=== PATIENT | female | born 1955 | race Caucasian/White ===

== ENCOUNTER → 2016-04-09 | Outpatient (REF) | payer OTHER | LOC: M LAB REF 16:36 | PROVIDERS: ATTEND Physician Assistant | DX: J06.9 Acute upper respiratory infection, unspecified (principal); R05 Cough ==

== ENCOUNTER → 2016-06-23 | Outpatient (REF) | payer OTHER | LOC: M LAB REF 19:59 | PROVIDERS: ATTEND Physician Assistant | DX: N39.0 Urinary tract infection, site not specified (principal) ==

== ENCOUNTER 2016-08-09 18:12 | Emergency (ER) | payer BC, OTHER ==
[~2016-08-09] VITALS: Ht 162.6 cm; Wt 75.7 kg
[2016-08-09] MEDS ORDERED: CALC1TAB40 PO (18:28)
[2016-08-09] MEDS ORDERED: VITA400C97 PO (18:28)
[2016-08-09] MEDS ORDERED: VITAMIN B COMPLEX PO (18:28)
[2016-08-09] MEDS ORDERED: MULT1TAB18 PO (18:28)
[2016-08-09] MEDS ORDERED: MAGN500C PO (18:28)
[2016-08-09] MEDS ORDERED: VITA80005 PO (18:28)
[2016-08-09] MEDS ORDERED: D 50CAP PO (18:28)
[2016-08-09] MEDS ORDERED: ASPI81TA85 PO (18:28)
[2016-08-09 19:27] LABS: ALBUMIN 3.7 GM/DL (3.2-5.2); ALBUMIN/GLOBULIN RATIO 1.16 (1.00-1.93); ALKALINE PHOSPHATASE 109 U/L (45-117); ALT/SGPT 29 U/L (12-78); ANION GAP 8 MEQ/L (8-16); AST/SGOT 26 U/L (15-37); BILIRUBIN,DIRECT < 0.1 MG/DL (0.0-0.2); BILIRUBIN,TOTAL 0.4 MG/DL (0.2-1.0); BLOOD UREA NITROGEN 14 MG/DL (7-18); CALCIUM LEVEL 9.2 MG/DL (8.8-10.2); CARBON DIOXIDE LEVEL 27 MEQ/L (21-32); CHLORIDE LEVEL 106 MEQ/L (98-107); CREATININE FOR GFR 0.72 MG/DL (0.55-1.02); GLOMERULAR FILTRATION RATE > 60.0 (>45); GLUCOSE, FASTING 101 MG/DL (80-110); POTASSIUM SERUM 4.1 MEQ/L (3.5-5.1); SODIUM LEVEL 141 MEQ/L (136-145); TOTAL PROTEIN 6.9 GM/DL (6.4-8.2)
[2016-08-09 19:28] LABS: BASO % 0.6 % (0.0-1.0); EOS # 0.1 K/mm3 (0.0-0.50); EOS % 1.4 % (0.0-3.0); LARGE UNSTAINED CELL # 0.1 K/mm3 (0.0-0.4); LARGE UNSTAINED CELL % 2.4 % (0.0-4.0); LYMPH # 2.3 K/mm3 (1.5-4.5); MEAN CORPUSCULAR HEMOGLOBIN 29.7 pg (27.0-33.0); MEAN CORPUSCULAR HGB CONC 32.3 g/dl (32.0-36.5); MONO # 0.3 K/mm3 (0.0-0.8); MONO % 6.1 % (0.0-5.0); NEUTROPHILS # 2.7 K/mm3 (1.8-7.7); NEUTROPHILS % 49.5 % (36.0-66.0); PLATELET COUNT, AUTOMATED 279 k/mm3 (150-450); RED CELL DISTRIBUTION WIDTH 14.7 % (11.5-14.5); WHITE BLOOD COUNT 5.4 K/mm3 (4.0-10.0)
[2016-08-09] MEDS ORDERED: NS 1,000 ML IV ONE (21:00)
[2016-08-09] MEDS ORDERED: GASTROGRAFIN SOLUTION 30ML (Q9963) PO ONE ×2 (21:15)
[2016-08-09] MEDS ORDERED: PANTOPRAZOLE 40MG INJ (PROTONIX) (C9113) IV ONE (21:15)
[2016-08-09] MEDS ORDERED: ISOVUE-370 76% 100ML VIAL (Q9967) As Ordered ONE (22:42)
--- NOTE | 2016-08-09 23:00 | REPUSA ---
CT of the abdomen and pelvis with contrast Clinical statement: Pain. Technique: Multiple axial CT images were obtained from the base of the lungs through the floor of the pelvis utilizing 5 mm axial slices after administration of oral and nonionic intravenous contrast. C oronal and sagittal reconstructions were also obtained. Comparison: None. Findings: Chest: The visualized lung bases are clear. Abdomen: The liver, spleen, pancreas, kidneys, and adrenal glands are unremarkable. The patient is st atus post gastric bypass. The aorta is within normal limits. There is no evidence of abdominal lympha denopathy or ascites. Pelvis: The bowel is unremarkable, with no obstructive or inflammatory changes. The urinary bladder i s within normal limits. The other pelvic structures appear grossly intact. There is no evidence of pe lvic lymphadenopathy or ascites. Bones: There are no suspicious osseous abnormalities seen. Impression: 1. No obstructive or inflammatory bowel changes. 2. Gastric bypass appears unremarkable. 3. Patient status post cholecystectomy.
[2016-08-09] MEDS ORDERED: SUCR1SS PO (23:21)
[2016-08-09] MEDS ORDERED: PROT1TAB2 PO (23:21)
[2016-08-09 23:35] VITALS: BP 139/83
== END 2016-08-09 23:37 | disposition home or self-care (01) ==
LOC: M ED 20:09
DX: K25.0 Acute gastric ulcer with hemorrhage (principal); K92.1 Melena; R10.12 Left upper quadrant pain; Z98.84 Bariatric surgery status; Z90.49 Acquired absence of other specified parts of digestive tract; Z90.79 Acquired absence of other genital organ(s); Z79.899 Other long term (current) drug therapy; Z88.7 Allergy status to serum and vaccine
CPT/HCPCS: 36415; 74177; 80048; 80076; 81001; 83690; 85025; 86850; 86900; 86901; 96374; 99284; C9113; Q9963; Q9967

== ENCOUNTER 2017-06-19 19:48 | Inpatient (IN) | payer BC, OTHER ==
[2017-06-19] MEDS: PANTOPRAZOLE 40MG INJ (PROTONIX) (C9113) IV ×2 (21:00→21:27)
[2017-06-19 21:03] LABS: BASO % 0.5 % (0.0-1.0); EOS # 0.1 10^3/uL (0.0-0.50); EOS % 0.8 % (0.0-3.0); HEMATOCRIT 24.3 % (36.0-47.0); HEMOGLOBIN 7.6 g/dl (12.0-15.5); IMMATURE GRANULOCYTE % 0.2 % (0-3.0); LYMPH # 1.9 10^3/uL (1.5-4.5); LYMPH % 29.2 % (24.0-44.0); MEAN CORPUSCULAR HEMOGLOBIN 26.4 pg (27.0-33.0); MEAN CORPUSCULAR HGB CONC 31.3 g/dl (32.0-36.5); MEAN CORPUSCULAR VOLUME 84.4 fl (80.0-96.0); MONO # 0.7 10^3/uL (0.0-0.8); MONO % 10.1 % (0.0-5.0); NEUTROPHILS % 59.2 % (36.0-66.0); PLATELET COUNT, AUTOMATED 363 10^3/uL (150-450); RED BLOOD COUNT 2.88 10^6/uL (4.00-5.40); RED CELL DISTRIBUTION WIDTH 15.9 % (11.5-14.5); WHITE BLOOD COUNT 6.7 10^3/uL (4.0-10.0)
[2017-06-19] MEDS: NS 1,000 ML IV (21:26)
[2017-06-19 21:30] LABS: INR 0.96; PROTHROMBIN TIME 12.9 SECONDS (12.4-14.5)
[2017-06-19 21:36] LABS: ALBUMIN 3.6 GM/DL (3.2-5.2); ALBUMIN/GLOBULIN RATIO 0.92 (1.00-1.93); ALKALINE PHOSPHATASE 96 U/L (45-117); ALT/SGPT 24 U/L (12-78); ANION GAP 9 MEQ/L (8-16); AST/SGOT 20 U/L (7-37); BILIRUBIN,DIRECT < 0.1 MG/DL (0.0-0.2); BILIRUBIN,TOTAL 0.2 MG/DL (0.2-1.0); BLOOD UREA NITROGEN 14 MG/DL (7-18); CALCIUM LEVEL 8.6 MG/DL (8.8-10.2); CARBON DIOXIDE LEVEL 22 MEQ/L (21-32); CHLORIDE LEVEL 112 MEQ/L (98-107); CREATININE FOR GFR 0.72 MG/DL (0.55-1.30); GLOMERULAR FILTRATION RATE > 60.0 (>45); GLUCOSE, FASTING 112 MG/DL (70-100); LIPASE 216 U/L (73-393); POTASSIUM SERUM 3.7 MEQ/L (3.5-5.1); SODIUM LEVEL 143 MEQ/L (136-145); TOTAL PROTEIN 7.5 GM/DL (6.4-8.2)
[2017-06-19 22:15] LABS: IMMEDIATE SPIN CROSSMATCH 1 2
[2017-06-20] MEDS: LR 1,000 ML IV ×4 (03:01→17:06)
[2017-06-20 05:16] LABS: HEMATOCRIT 28.4 % (36.0-47.0)
[2017-06-20 05:34] LABS: ANION GAP 5 MEQ/L (8-16); BLOOD UREA NITROGEN 10 MG/DL (7-18); CALCIUM LEVEL 8.6 MG/DL (8.8-10.2); CARBON DIOXIDE LEVEL 24 MEQ/L (21-32); CHLORIDE LEVEL 116 MEQ/L (98-107); CREATININE FOR GFR 0.61 MG/DL (0.55-1.30); GLOMERULAR FILTRATION RATE > 60.0 (>45); GLUCOSE, FASTING 90 MG/DL (70-100); POTASSIUM SERUM 4.8 MEQ/L (3.5-5.1); SODIUM LEVEL 145 MEQ/L (136-145)
[2017-06-20] MEDS: PANTOPRAZOLE 40MG INJ (PROTONIX) (C9113) IV (08:46)
[2017-06-20] MEDS ORDERED: PROPOFOL 200 MG/20 ML VIAL As Ordered ×2 (15:44→16:07)
[2017-06-20] MEDS ORDERED: LIDOCAINE 2% INJ 100 MG/5 ML SYRINGE As Ordered (15:44)
[2017-06-20] MEDS: SUCRALFATE 1 GM TAB PO (17:50)
[2017-06-20 19:29] LABS: HEMATOCRIT 28.1 % (36.0-47.0)
[2017-06-21] MEDS: LR 1,000 ML IV ×2 (01:10→08:34)
[2017-06-21] MEDS: ACETAMINOPHEN TAB 650MG DOSE (2X325MG) PO (03:53)
[2017-06-21 05:47] LABS: HEMATOCRIT 29.3 % (36.0-47.0); HEMOGLOBIN 9.3 g/dl (12.0-15.5); MEAN CORPUSCULAR HEMOGLOBIN 26.3 pg (27.0-33.0); MEAN CORPUSCULAR HGB CONC 31.7 g/dl (32.0-36.5); PLATELET COUNT, AUTOMATED 294 10^3/uL (150-450); RED BLOOD COUNT 3.53 10^6/uL (4.00-5.40); RED CELL DISTRIBUTION WIDTH 16.1 % (11.5-14.5); WHITE BLOOD COUNT 5.1 10^3/uL (4.0-10.0)
[2017-06-21 06:11] LABS: ANION GAP 7 MEQ/L (8-16); BLOOD UREA NITROGEN 5 MG/DL (7-18); CALCIUM LEVEL 8.6 MG/DL (8.8-10.2); CARBON DIOXIDE LEVEL 24 MEQ/L (21-32); CHLORIDE LEVEL 115 MEQ/L (98-107); GLOMERULAR FILTRATION RATE > 60.0 (>45); GLUCOSE, FASTING 87 MG/DL (70-100); SODIUM LEVEL 146 MEQ/L (136-145)
[2017-06-21] MEDS: SUCRALFATE 1 GM TAB PO (06:27)
[2017-06-21] MEDS: PANTOPRAZOLE 40MG TAB (PROTONIX) PO (08:05)
[2017-06-21 09:09] LABS: VITAMIN B12 LEVEL 351 PG/ML (247-911)
[2017-06-21 09:56] LABS: RETIC HEMOGLOBIN EQUIVALENT 24.1 pg (24-36); RETICULOCYTE # 68.9 10^9/L (17-77)
[2017-06-21 10:27] LABS: FERRITIN 5 NG/ML (8-252); IRON (FE) 22 UG/DL (50-170); PERCENT SATURATION 5.1 % (13.2-45.0); TOTAL IRON BINDING CAPACITY 432 UG/DL (250-450)
[2017-06-21] MEDS ORDERED: SLF 3 ML SYR IV (10:45)
[2017-06-21] MEDS: SLF 3 ML SYR IV (13:52)
== END 2017-06-21 14:06 | disposition home or self-care (01) | DRG 253 ==
LOC: M PCU 06-20 00:27 → M ED 19:48 → M ED INP 22:51
PROC: 0DJ08ZZ Inspection of Upper Intestinal Tract, Via Natural or Artificial Opening Endoscopic (ICD-10-PCS; principal; 2017-06-20 09:25)
PROC: 0W3P8ZZ Control Bleeding in Gastrointestinal Tract, Via Natural or Artificial Opening Endoscopic (ICD-10-PCS; 2017-06-20 09:25)
DX: K92.2 Gastrointestinal hemorrhage, unspecified (principal); K21.9 Gastro-esophageal reflux disease without esophagitis; Z79.899 Other long term (current) drug therapy; Z79.82 Long term (current) use of aspirin; Z88.7 Allergy status to serum and vaccine; K44.9 Diaphragmatic hernia without obstruction or gangrene; D62 Acute posthemorrhagic anemia

== ENCOUNTER → 2017-07-15 | Outpatient (CLI) | payer BC, OTHER ==
[2017-07-15 12:32] LABS: BASO % 0.7 % (0.0-1.0); EOS # 0.1 10^3/uL (0.0-0.50); HEMATOCRIT 31.9 % (36.0-47.0); IMMATURE GRANULOCYTE % 0.2 % (0-3.0); LYMPH # 2.4 10^3/uL (1.5-4.5); LYMPH % 43.9 % (24.0-44.0); MEAN CORPUSCULAR HEMOGLOBIN 26.2 pg (27.0-33.0); MEAN CORPUSCULAR HGB CONC 31.3 g/dl (32.0-36.5); MEAN CORPUSCULAR VOLUME 83.5 fl (80.0-96.0); MONO # 0.8 10^3/uL (0.0-0.8); MONO % 14.2 % (0.0-5.0); NEUTROPHILS # 2.1 10^3/uL (1.8-7.7); PLATELET COUNT, AUTOMATED 362 10^3/uL (150-450); RED BLOOD COUNT 3.82 10^6/uL (4.00-5.40); RED CELL DISTRIBUTION WIDTH 16.5 % (11.5-14.5); WHITE BLOOD COUNT 5.5 10^3/uL (4.0-10.0)
== END ==
LOC: M LAB 12:06
DX: K92.1 Melena (principal); D50.9 Iron deficiency anemia, unspecified
CPT/HCPCS: 85025

== ENCOUNTER 2017-08-22 06:41 | Day surgery (SDC) | payer BC, OTHER ==
[2017-08-22] MEDS: NS 1,000 ML IV (07:11)
[2017-08-22] MEDS ORDERED: PROPOFOL 200 MG/20 ML VIAL As Ordered (07:45)
[2017-08-22] MEDS ORDERED: LIDOCAINE 2% INJ 100 MG/5 ML SDV (FOR ANES.) As Ordered (07:45)
[2017-08-22] MEDS ORDERED: fentaNYL 100 MCG/2 ML INJECTION (J3010) As Ordered (07:45)
== END 2017-08-22 08:15 | disposition home or self-care (01) ==
LOC: M OPP 06:41
DX: K95.89 Other complications of other bariatric procedure (principal); Z98.84 Bariatric surgery status; K25.0 Acute gastric ulcer with hemorrhage; R19.7 Diarrhea, unspecified; R06.83 Snoring; Z79.899 Other long term (current) drug therapy; Z90.710 Acquired absence of both cervix and uterus; Z90.49 Acquired absence of other specified parts of digestive tract
CPT/HCPCS: 43235

== ENCOUNTER 2018-03-04 16:08 | Inpatient (IN) | payer BC, OTHER ==
[~2018-03-04] VITALS: Ht 162.6 cm; Wt 83.5 kg
[~2018-03-04 16:08] MED LIST: ASPI81TA85 PO; CALC1TAB40 PO; CALCTAB29 PO; D 50CAP PO; IRON65TA PO; MAGN500C PO; MULT1TAB18 PO; PANT40TA3 PO; PROT1TAB2 PO; SUCR1SS PO; SUCR1TA PO; VITA400C7 PO; VITA400C97 PO; VITA600C4 PO; VITA80005 PO; VITAMIN B COMPLEX PO; VITATAB11 PO; VITMTA PO
[2018-03-04] MEDS ORDERED: OMEP20CA3 PO (17:04)
[2018-03-04] MEDS ORDERED: TYLE500T78 PO (17:04)
[2018-03-04] MEDS ORDERED: PANTOPRAZOLE 40MG INJ (PROTONIX) (C9113) IV ONE (17:15)
[2018-03-04 17:32] LABS: BASO % 0.2 % (0.0-1.0); EOS % 0.1 % (0.0-3.0); HEMOGLOBIN 9.4 g/dl (12.0-15.5); LYMPH # 1.5 10^3/uL (1.5-4.5); LYMPH % 18.3 % (24.0-44.0); MEAN CORPUSCULAR HEMOGLOBIN 29.2 pg (27.0-33.0); MEAN CORPUSCULAR HGB CONC 32.4 g/dl (32.0-36.5); MEAN CORPUSCULAR VOLUME 90.1 fl (80.0-96.0); MONO # 0.5 10^3/uL (0.0-0.8); MONO % 6.1 % (0.0-5.0); NEUTROPHILS # 6.3 10^3/uL (1.8-7.7); NEUTROPHILS % 74.9 % (36.0-66.0); PLATELET COUNT, AUTOMATED 282 10^3/uL (150-450); RED BLOOD COUNT 3.22 10^6/uL (4.00-5.40); WHITE BLOOD COUNT 8.4 10^3/uL (4.0-10.0)
--- NOTE | 2018-03-04 17:40 | REP ---
Clinical: abdominal pain. Technique: Upright view of the chest with supine and upright views of the abdomen and pelvis. Findings: Frontal upright view of the chest demonstrates no acute cardiopulmonary process or free air below the diaphragm to suspect pneumoperitoneum. Supine and upright views of the abdomen and pelvis demonstrate nonspecific bowel gas pattern without obstruction or perforation. No organomegaly. Prior cholecystectomy. Surgical suture material in the left upper quadrant suggest prior gastric bypass surgery. Phleboliths noted in the pelvis. Impression: Nonspecific bowel gas pattern. Evidence of prior cholecystectomy and gastric bypass surgery. Electronically Signed by Miguel Andrea MD 03/04/2018 05:31 P
[2018-03-04 17:59] LABS: ALBUMIN 3.1 GM/DL (3.2-5.2); ALT/SGPT 20 U/L (12-78); BILIRUBIN,DIRECT 0.1 MG/DL (0.0-0.2); BILIRUBIN,TOTAL 0.3 MG/DL (0.2-1.0); BLOOD UREA NITROGEN 38 MG/DL (7-18); CALCIUM LEVEL 8.4 MG/DL (8.8-10.2); CARBON DIOXIDE LEVEL 25 MEQ/L (21-32); CHLORIDE LEVEL 108 MEQ/L (98-107); CPK CREATINE PHOSPHOKINASE 99 U/L (26-192); CREATININE FOR GFR 0.66 MG/DL (0.55-1.30); GLOMERULAR FILTRATION RATE > 60.0 (>45); GLUCOSE, FASTING 132 MG/DL (70-100); MB/CK RELATIVE INDEX 1.11 (< OR =4); POTASSIUM SERUM 4.2 MEQ/L (3.5-5.1); SODIUM LEVEL 142 MEQ/L (136-145); TOTAL PROTEIN 6.4 GM/DL (6.4-8.2); TROPONIN I < 0.02 NG/ML (< 0.10)
[2018-03-04] MEDS ORDERED: NS 1,000 ML IV SCH (18:15)
[2018-03-04 18:22] LABS: INR 1.08; PROTHROMBIN TIME 14.1 SECONDS (12.1-14.4)
--- NOTE | 2018-03-04 18:32 | ECGEPIP ---
Stationary ECG Study [facility] - ED Test Date: 2018-03-04 Pat Name: MATEO PATE Department: Room: - Gender: F Corrections Counselor: kathy : 1955 Requested By: CIPRIANO SURESH Order Number: [id number] Reading MD: Janet Flowers Measurements Intervals [place] Rate: 88 P: 55 IN: 132 QRS: -19 QRSD: 86 T: -89 QT: 363 QTc: 440 Interpretive Statements SINUS RHYTHM ST DEVIATION AND MODERATE T-WAVE ABNORMALITY, CONSIDER ANTERIOR ISCHEMIA, C CLINICAL CORRELATION NO PRIOR FOR COMPARISON Electronically Signed On 03-04-2018 18:32:23 EST by Janet Flowers
[2018-03-04] MEDS ORDERED: ACETAMINOPHEN 500 MG TAB PO PRN (19:45)
[2018-03-04 21:20] VITALS: BP 140/65
[2018-03-04] MEDS ORDERED: ONDANSETRON 4MG/2ML VIAL (J2405) IV PRN (21:45)
[2018-03-04] MEDS: PANTOPRAZOLE 40MG INJ (PROTONIX) (C9113) IV SCH (21:45)
[2018-03-04] MEDS: NS 1,000 ML IV SCH (21:46)
[2018-03-04] MEDS: ACETAMINOPHEN 500 MG TAB PO PRN (23:44)
[2018-03-05] MEDS: NS 1,000 ML IV SCH (02:43)
[2018-03-05 06:00] VITALS: BP 103/50
[2018-03-05 06:20] LABS: BASO % 0.4 % (0.0-1.0); EOS # 0.1 10^3/uL (0.0-0.50); EOS % 1.6 % (0.0-3.0); HEMOGLOBIN 7.5 g/dl (12.0-15.5); LYMPH % 40.7 % (24.0-44.0); MEAN CORPUSCULAR HEMOGLOBIN 29.6 pg (27.0-33.0); MEAN CORPUSCULAR HGB CONC 32.6 g/dl (32.0-36.5); MEAN CORPUSCULAR VOLUME 90.9 fl (80.0-96.0); MONO # 0.6 10^3/uL (0.0-0.8); MONO % 8.5 % (0.0-5.0); NEUTROPHILS # 3.6 10^3/uL (1.8-7.7); NEUTROPHILS % 48.7 % (36.0-66.0); PLATELET COUNT, AUTOMATED 229 10^3/uL (150-450); RED BLOOD COUNT 2.53 10^6/uL (4.00-5.40); WHITE BLOOD COUNT 7.3 10^3/uL (4.0-10.0)
--- NOTE | 2018-03-05 08:24 | IPNPDOC ---
Date Seen The patient was seen on 03/05/18. Progress Note SUBJECTIVE: Patient seen and examined at bedside, in no apparent distress, Hb 7.5, no BM this am. for 1 unit PRBC. will continue to trend Hb OBJECTIVE PHYSICAL EXAMINATION: VITAL SIGNS: Please see below. GENERAL: well nourished, in no apparent distress HEENT: atraumatic, normocephalic , EOMI CARDIOVASCULAR: regular, rate and rhythm, normal s1 and s2 , no MGR RESPIRATORY: clear to auscultation b/l, no wheezes or crackles ABDOMINAL: soft, mild tenderness to deep palpation in epigastric area, no rebound or guarding EXTREMITIES: no edema, no calf tenderness NEUROLOGICAL: A&OX3., no focal deficits appreciated on the exam PSYCHOLOGICAL: normal mood, normal affect LABORATORY DATA, IMAGING STUDIES, MICROBIOLOGY: Please see below. DVT prophylaxis ordered?: sequential compression devices ASSESSMENT AND PLAN: 63 year old female with hx of gastric bypass and bleeding anastomotic ulcer requiring clips in past presents with melanotic stools PROBLEMS: 1. Acute Blood loss anemia 2/2 Upper GI bleed: ulcer ( most likely) vs gastritis vs angiodysplasia : had recent scope 07/[address] Schumacher. PPI BID, clear liquid diet, serial HB, transfuse keep HB > 8, surgery on board. stool for occult blood. 2. hx of gastric bypass: stable DISPOSITION: will continue to trend Hb, advance diet as tolerated. if Hb remains stable and stool improves, likely discharge in 48 hrs, if decompensates, likely would need endoscopy again VS, I&O, 24H, Fishbone Vital Signs/I&O Vital Signs Date Time Temp Pulse Resp B/P (MAP) Pulse Ox O2 Delivery O2 Flow Rate FiO2 03/05/18 06:00 98.5 71 18 103/50 (67) 99 Room Air I&O- Last 24 Hours up to 6 AM 03/05/18 05:59 Intake Total 1000 ml Output Total 500 ml Balance 500 ml Laboratory Data 24H LABS Laboratory Tests 2 03/04/18 17:20: Immature Granulocyte % (Auto) 0.4, White Blood Count 8.4, Red Blood Count 3.22L, Hemoglobin 9.4L, Hematocrit 29.0L, Mean Corpuscular Volume 90.1, Mean Corpuscular Hemoglobin 29.2, Mean Corpuscular Hemoglobin Concent 32.4, Red Cell Distribution Width 15.3H, Platelet Count 282, Neutrophils (%) (Auto) 74.9H, Lymphocytes (%) (Auto) 18.3L, Monocytes (%) (Auto) 6.1H, Eosinophils (%) (Auto) 0.1, Basophils (%) (Auto) 0.2, Neutrophils # (Auto) 6.3, Lymphocytes # (Auto) 1.5, Monocytes # (Auto) 0.5, Eosinophils # (Auto) 0.0, Basophils # (Auto) 0.0, Nucleated Red Blood Cells % (auto) 0.0, Prothrombin Time 14.1, Prothromb Time International Ratio 1.08, Activated Partial Thromboplast Time 22.0L, Anion Gap 9, Glomerular Filtration Rate > 60.0, Calcium Level 8.4L, Aspartate Amino Transf (AST/SGOT) 14, Alanine Aminotransferase (ALT/SGPT) 20, Alkaline Phosphatase 83, Total Bilirubin 0.3, Direct Bilirubin 0.1, Total Creatine Kinase 99, Creatine Kinase MB 1.0, Creatine Kinase MB Relative Index 1.11, Troponin I < 0.02, Total Protein 6.4, Albumin 3.1L, Albumin/Globulin Ratio 0.94L 03/05/18 06:10: Immature Granulocyte % (Auto) 0.1, White Blood Count 7.3, Red Blood Count 2.53L, Hemoglobin 7.5L, Hematocrit 23.0L, Mean Corpuscular Volume 90.9, Mean Corpuscular Hemoglobin 29.6, Mean Corpuscular Hemoglobin Concent 32.6, Red Cell Distribution Width 15.6H, Platelet Count 229, Neutrophils (%) (Auto) 48.7, Lymphocytes (%) (Auto) 40.7, Monocytes (%) (Auto) 8.5H, Eosinophils (%) (Auto) 1.6, Basophils (%) (Auto) 0.4, Neutrophils # (Auto) 3.6, Lymphocytes # (Auto) 3.0, Monocytes # (Auto) 0.6, Eosinophils # (Auto) 0.1, Basophils # (Auto) 0.0, Nucleated Red Blood Cells % (auto) 0.0 CBC/BMP Laboratory Tests 03/04/18 17:20 Red Blood Count 3.22 L, Mean Corpuscular Volume 90.1, Mean Corpuscular Hemoglobin 29.2, Mean Corpuscular Hemoglobin Concent 32.4, Red Cell Distribution Width 15.3 H, Neutrophils (%) (Auto) 74.9 H, Lymphocytes (%) (Auto) 18.3 L, Monocytes (%) (Auto) 6.1 H, Eosinophils (%) (Auto) 0.1, Basophils (%) (Auto) 0.2, Neutrophils # (Auto) 6.3, Lymphocytes # (Auto) 1.5, Monocytes # (Auto) 0.5, Eosinophils # (Auto) 0.0, Basophils # (Auto) 0.0 03/05/18 06:10 Red Blood Count 2.53 L, Mean Corpuscular Volume 90.9, Mean Corpuscular Hemoglobin 29.6, Mean Corpuscular Hemoglobin Concent 32.6, Red Cell Distribution Width 15.6 H, Neutrophils (%) (Auto) 48.7, Lymphocytes (%) (Auto) 40.7, Monocytes (%) (Auto) 8.5 H, Eosinophils (%) (Auto) 1.6, Basophils (%) (Auto) 0.4, Neutrophils # (Auto) 3.6, Lymphocytes # (Auto) 3.0, Monocytes # (Auto) 0.6, Eosinophils # (Auto) 0.1, Basophils # (Auto) 0.0 TUESDAY,ALE CORDOVA Mar 05, 2018 08:24
[2018-03-05] MEDS: VITAMIN D 1,000 INTERNATIONAL UNITS TABLET PO SCH (08:53)
[2018-03-05] MEDS: VITAMIN B COMPLEX/VIT C CAP PO SCH (08:53)
[2018-03-05] MEDS: PANTOPRAZOLE 40MG INJ (PROTONIX) (C9113) IV SCH ×2 (08:53→20:08)
--- NOTE | 2018-03-05 09:48 | HPE ---
DATE OF ADMISSION: 03/04/2018 63-year-old female with past medical history of gastric bypass surgery with recurrent peptic ulcers, last ulcer was in June 2017, scoped by Dr. Schumacher. She presents to the emergency room with large amount of melanotic stool that happened earlier this afternoon. She did not have any associated abdominal pain during that event; however, she has been complaining of epigastric pain over the last couple of days, unrelated to eating food. She does also admit to having Motrin occasionally for headaches; however, she does not take it avidly. She denies any chest pain, shortness of breath, abdominal pain, nausea, vomiting, vertigo or headache at this time. Her initial emergency room hemoglobin and hematocrit were stable compared to prior hemoglobin and hematocrit. She will be admitted for further management. PAST MEDICAL HISTORY: 1. Gastric bypass surgery with history of recurrent peptic ulcers, last ulcer in June 2017. 2. Laparoscopic cholecystectomy. 3. Right arthroscopic subacromial decompression. ALLERGIES: INFLUENZA VACCINE. FAMILY HISTORY: Noncontributory. SOCIAL HISTORY: The patient denies tobacco, alcohol or illicit drug use. MEDICATIONS: She takes at home: - Tylenol 1 gram orally every 4 hours as needed - vitamin B complex one tablet orally daily - calcium with vitamin D one tablet orally daily - cholecalciferol 5000 units orally daily - multivitamin one tablet orally daily - pantoprazole 40 mg orally twice a day - vitamin A 3000 units orally daily - vitamin E 400 units orally daily REVIEW OF SYSTEMS: Negative for all ten major systems except what is mentioned in the history of present illness. VITAL SIGNS: Blood pressure 104/56, heart rate is 80 and regular, respiratory rate is 17, temperature is 99.5, oxygen saturation is 100% on room air. Head is atraumatic, normocephalic. Neck is supple with no jugular venous distention (JVD). Lungs are clear to auscultation. S1, S2 audible. No murmurs appreciated. Abdomen is soft. Positive bowel sounds. No pedal edema. Skin intact. Neurologic examination, the patient is awake, alert and oriented times three. LABORATORIES: WBC 8.4, hemoglobin 9.4, hematocrit 29, platelets are 282,000. Sodium 142, potassium 4.2, chloride 108, CO2 of 25, BUN 38, creatinine 0.66, calcium 8.4, glucose 132, troponin is less than 0.02. PT is 14.1, INR 1.08, PTT 22. IMPRESSION AND PLAN: 1. Upper gastrointestinal bleed. The patient is going to be admitted to the medical/surgical floor. I will keep her nothing by mouth and start her on IV fluids with normal saline at 100 an hour. We will switch her oral Protonix to IV with [address] Jerome has been consulted and will be on board in this case with us. There have been no further melanotic episodes, only that one episode at home, according to her. We will follow Dr. Jerome's recommendations for either inpatient or outpatient endoscopy based on her clinical status tomorrow.
[2018-03-05] MEDS: SUCRALFATE 1 GM TAB PO SCH ×2 (12:17→17:13)
[2018-03-05 14:00] VITALS: BP 127/60
--- NOTE | 2018-03-05 15:42 | CR ---
DATE OF CONSULTATION: 03/05/2019 REASON FOR CONSULTATION: Gastrointestinal bleed. HISTORY OF PRESENT ILLNESS: The patient is a 63-year-old female who presents with sudden onset of weakness and black tarry stools that started yesterday morning. She has had similar symptoms back in June of this year and Dr. Schumacher went in and did an esophagogastroduodenoscopy (EGD) and placed a clip next to an ulcer at her jejunogastric anastomosis. She then had a repeat endoscopy in August confirming that this was completely healed up. She is very aware of this. She watches her diet, watches her intake and was using Protonix at home; however, her prescription ran out 2 weeks ago and she has not refilled it. She has had some epigastric tenderness over the last few days and then these black, tarry stools that started suddenly yesterday along with the weakness. No vomiting blood. No bright red blood in her stool and no other changes in medications or complaints. Her only other risk factor is that she drinks about two 20 ounces Pepsi a day. PAST MEDICAL HISTORY: Cardiac disease, status post gastric bypass. PAST SURGICAL HISTORY: Gastric bypass, right shoulder surgery, tubal ligation, hysterectomy. ALLERGIES: INFLUENZA VACCINE. MEDICATIONS: Please see medical record. REVIEW OF SYSTEMS: Pertinent positives and negatives as stated in the history of present illness. PHYSICAL EXAMINATION: GENERAL: Alert and oriented times three. No acute distress. VITALS: Temperature 98.5, pulse 71, respirations 18, blood pressure 103/50, pulse oximetry 99% on room air. HEENT: Pupils equal round react to light accommodation. HEART: S1, S2 regular rate and rhythm. LUNGS: Clear to auscultation bilaterally. ABDOMEN: Soft, nontender, nondistended. EXTREMITIES: No clubbing, cyanosis or edema. LABORATORY DATA: White count 7.3, hemoglobin 9.4, and on admission down to 7.5 this morning, platelets 229, potassium 4.2, creatinine 0.66. IMAGING STUDIES: Abdominal x-ray was obtained that showed nonspecific bowel gas pattern and evidence of prior cholecystectomy and gastric bypass surgery. ASSESSMENT/PLAN: The patient is a 63-year-old female with melanotic stools secondary to a gastrointestinal bleed likely site from a bleeding gastric marginal ulcer. PLAN: Place her back on Protonix and Carafate for now and transfuse her 1 unit just to get her over 8. She is otherwise asymptomatic from her anemia. As long as her hemoglobin remained stable and she starts having bowel movements that her brown, she can safely be discharged home within the next 24-48 hours. If she does show signs of continuing to bleed then we will plan on urgent upper endoscopy to see if we can either cauterize or clip the area that is bleeding.
[2018-03-05 18:30] VITALS: BP 115/56
[2018-03-05 20:00] VITALS: BP 106/53
[2018-03-06 04:00] VITALS: BP 104/58
[2018-03-06 06:49] LABS: BLOOD UREA NITROGEN 8 MG/DL (7-18); CALCIUM LEVEL 8.2 MG/DL (8.8-10.2); CARBON DIOXIDE LEVEL 25 MEQ/L (21-32); CHLORIDE LEVEL 111 MEQ/L (98-107); CREATININE FOR GFR 0.54 MG/DL (0.55-1.30); GLOMERULAR FILTRATION RATE > 60.0 (>45); GLUCOSE, FASTING 87 MG/DL (70-100); POTASSIUM SERUM 3.8 MEQ/L (3.5-5.1); SODIUM LEVEL 143 MEQ/L (136-145)
[2018-03-06] MEDS: SUCRALFATE 1 GM TAB PO SCH ×3 (07:47→17:38)
[2018-03-06 08:00] VITALS: BP 118/62
[2018-03-06] MEDS: PANTOPRAZOLE 40MG INJ (PROTONIX) (C9113) IV SCH ×2 (08:53→21:14)
[2018-03-06] MEDS: VITAMIN B COMPLEX/VIT C CAP PO SCH (08:53)
[2018-03-06] MEDS: VITAMIN D 1,000 INTERNATIONAL UNITS TABLET PO SCH (08:53)
[2018-03-06] MEDS: ACETAMINOPHEN 500 MG TAB PO PRN (09:47)
--- NOTE | 2018-03-06 14:13 | IPNPDOC ---
Date Seen The patient was seen on 03/06/18. Progress Note SUBJECTIVE: pt seen and examined at bedside, no acute distress, continue to have dark stool, FOBT +, HB 9 post transfusion, remains on PPI BID, Carafate and clear liquid diet OBJECTIVE PHYSICAL EXAMINATION: VITAL SIGNS: Please see below. GENERAL: well nourished, in no apparent distress HEENT: atraumatic, normocephalic , EOMI CARDIOVASCULAR: regular, rate and rhythm, normal s1 and s2 , no MGR RESPIRATORY: clear to auscultation b/l, no wheezes or crackles ABDOMINAL: soft, mild tenderness to deep palpation in epigastric area, no rebound or guarding EXTREMITIES: no edema, no calf tenderness NEUROLOGICAL: A&OX3., no focal deficits appreciated on the exam PSYCHOLOGICAL: normal mood, normal affect LABORATORY DATA, IMAGING STUDIES, MICROBIOLOGY: Please see below. DVT prophylaxis ordered?: sequential compression devices ASSESSMENT AND PLAN: 63 year old female with hx of gastric bypass and bleeding anastomotic ulcer requiring clips in past presents with melanotic stools PROBLEMS: 1. Acute Blood loss anemia 2/2 Upper GI bleed: ulcer ( most likely) vs gastritis vs angiodysplasia : had recent scope 07/[address] Schumacher. PPI BID, clear liquid diet, serial HB, transfuse keep HB > 8, surgery on board. stool for occult blood +. Carafate 2. hx of gastric bypass: stable VS, I&O, 24H, Fishbone Vital Signs/I&O Vital Signs Date Time Temp Pulse Resp B/P (MAP) Pulse Ox O2 Delivery O2 Flow Rate FiO2 03/06/18 08:00 100.1 78 18 118/62 (80) 100 Room Air I&O- Last 24 Hours up to 6 AM 03/06/18 06:00 Intake Total 2020 ml Output Total 4200 ml Balance -2180 ml Laboratory Data 24H LABS Laboratory Tests 2 03/06/18 05:55: Anion Gap 7L, Glomerular Filtration Rate > 60.0, Blood Urea Nitrogen 8#, Creatinine 0.54L, Sodium Level 143, Potassium Level 3.8, Chloride Level 111H, Carbon Dioxide Level 25, Calcium Level 8.2L CBC/BMP Laboratory Tests 03/05/18 17:51 03/06/18 05:55 Calcium Level 8.2 L Microbiology Microbiology 03/06/18 Stool Occult Blood (JUSTINO) - Final, Complete IESHA,ALE CORDOVA Mar 06, 2018 14:13
[2018-03-06 16:00] VITALS: BP 114/57
[2018-03-06 20:00] VITALS: BP 101/55
[2018-03-07 04:09] VITALS: BP 130/59
[2018-03-07] MEDS: ACETAMINOPHEN 500 MG TAB PO PRN ×2 (06:21→14:20)
[2018-03-07 07:15] LABS: HEMATOCRIT 27.9 % (36.0-47.0); MEAN CORPUSCULAR HEMOGLOBIN 29.7 pg (27.0-33.0); MEAN CORPUSCULAR HGB CONC 32.3 g/dl (32.0-36.5); MEAN CORPUSCULAR VOLUME 92.1 fl (80.0-96.0); PLATELET COUNT, AUTOMATED 233 10^3/uL (150-450); RED BLOOD COUNT 3.03 10^6/uL (4.00-5.40); WHITE BLOOD COUNT 7.4 10^3/uL (4.0-10.0)
[2018-03-07 07:30] LABS: BLOOD UREA NITROGEN 6 MG/DL (7-18); CALCIUM LEVEL 8.1 MG/DL (8.8-10.2); CARBON DIOXIDE LEVEL 27 MEQ/L (21-32); CHLORIDE LEVEL 108 MEQ/L (98-107); CREATININE FOR GFR 0.53 MG/DL (0.55-1.30); GLOMERULAR FILTRATION RATE > 60.0 (>45); GLUCOSE, FASTING 88 MG/DL (70-100); POTASSIUM SERUM 3.6 MEQ/L (3.5-5.1); SODIUM LEVEL 142 MEQ/L (136-145)
[2018-03-07 08:00] VITALS: BP 126/58
[2018-03-07] MEDS: VITAMIN B COMPLEX/VIT C CAP PO SCH (08:40)
[2018-03-07] MEDS: PANTOPRAZOLE 40MG INJ (PROTONIX) (C9113) IV SCH (08:40)
[2018-03-07] MEDS: SUCRALFATE 1 GM TAB PO SCH ×3 (08:40→19:13)
[2018-03-07] MEDS: VITAMIN D 1,000 INTERNATIONAL UNITS TABLET PO SCH (08:40)
[2018-03-07 16:00] VITALS: BP 114/53
[2018-03-07 20:00] VITALS: BP 117/54
[2018-03-07] MEDS: PANTOPRAZOLE 40MG TAB (PROTONIX) PO SCH (21:32)
[2018-03-08 04:00] VITALS: BP 98/56
[2018-03-08] MEDS: ACETAMINOPHEN 500 MG TAB PO PRN (04:23)
--- NOTE | 2018-03-08 06:04 | IPN ---
DATE OF SERVICE: 03/07/2018 Patient seen and examined. Had about four bowel movements overnight, brownish color with tingle of blood but hemoglobin and hematocrit remain relatively stable. Patient denies any lightheadedness, chest pain, pressure or discomfort. Had one episode of elevated temperature but patient currently feels at baseline. Denies any other distress. Vital signs: Temperature: T-max 100.5, T-current 99.6, pulse 68, respiration 19, blood pressure 114/53, pulse oximetry 99% on room air. LABORATORY: WBC 7.4, hemoglobin and hematocrit 9/27.9, platelets 233. Chemistry: Sodium 142, potassium 3.6, chloride 108, bicarbonate 27, BUN 6, creatinine 0.53. PHYSICAL EXAMINATION: General: Patient alert, comfortable, in no acute distress. HEENT: Normocephalic, atraumatic. Pulmonary: Bilateral clear to auscultation. Cardiac: Regular S1, S2. Abdomen: Soft. No significant tenderness. No rebound. No guarding. Positive bowel sounds. Extremities: No clubbing, cyanosis or edema. ASSESSMENT AND PLAN: This is a 63-year-old female patient with underlying medical history of gastric bypass in the past with also in June recurrent ulcers, scope by Dr. Schumacher with peptic ulcer at anastomosis, presented with melanotic stool. PROBLEMS: 1. Gastrointestinal (GI) bleed. Transfused 1 unit packed red blood cells. Possible secondary to angiodysplasia versus gastritis versus peptic ulcer. Had scope by Dr. Schumacher in June 2017. General surgery Dr. Jerome has been consulted. Continue PPI. Diet discussed with Dr. Jerome. Given hemoglobin and hematocrit has been stable, would like to advance diet. Continue Carafate. Patient's diet has been advanced to soft. Further recommendations per general surgery. Continue to follow bowel movements and continue to follow hemoglobin and hematocrit. 2. History of gastric bypass. Will monitor closely with outpatient followup. 3. Deep venous thrombosis (DVT) prophylaxis. Thromboembolic deterrent stockings (TEDS) and sequentials, early ambulation. DISPOSITION: Pending clinical improvement. Further recommendations as per surgery.
[2018-03-08 06:26] LABS: HEMATOCRIT 27.9 % (36.0-47.0); MEAN CORPUSCULAR HEMOGLOBIN 29.7 pg (27.0-33.0); MEAN CORPUSCULAR HGB CONC 32.3 g/dl (32.0-36.5); MEAN CORPUSCULAR VOLUME 92.1 fl (80.0-96.0); PLATELET COUNT, AUTOMATED 252 10^3/uL (150-450); RED BLOOD COUNT 3.03 10^6/uL (4.00-5.40); WHITE BLOOD COUNT 6.5 10^3/uL (4.0-10.0)
[2018-03-08 06:44] LABS: BLOOD UREA NITROGEN 6 MG/DL (7-18); CALCIUM LEVEL 8.2 MG/DL (8.8-10.2); CARBON DIOXIDE LEVEL 28 MEQ/L (21-32); CHLORIDE LEVEL 109 MEQ/L (98-107); GLOMERULAR FILTRATION RATE > 60.0 (>45); GLUCOSE, FASTING 90 MG/DL (70-100); POTASSIUM SERUM 3.6 MEQ/L (3.5-5.1); SODIUM LEVEL 144 MEQ/L (136-145)
[2018-03-08 08:00] VITALS: BP 109/54
[2018-03-08] MEDS: VITAMIN B COMPLEX/VIT C CAP PO SCH (08:09)
[2018-03-08] MEDS: SUCRALFATE 1 GM TAB PO SCH (08:09)
[2018-03-08] MEDS: PANTOPRAZOLE 40MG TAB (PROTONIX) PO SCH (08:09)
[2018-03-08] MEDS: VITAMIN D 1,000 INTERNATIONAL UNITS TABLET PO SCH (08:09)
[2018-03-08] MEDS ORDERED: SUCR1TA PO (09:59)
[2018-03-08] MEDS ORDERED: PANT40TA3 PO (09:59)
--- NOTE | 2018-03-08 15:21 | DSES ---
DATE OF ADMISSION: 03/04/2018 DATE OF DISCHARGE: 03/08/2018 PRIMARY CARE PROVIDER: Renny Buckley MD GENERAL SURGERY: Dr. Leighton Jerome Char Filter Operator Helper saw patient, Dr. Cornelius Schumacher. FINAL DIAGNOSES: Upper gastrointestinal (GI) bleed. Acute blood loss anemia. History of gastric bypass. HISTORY OF PRESENT ILLNESS: This is a 63-year-old female patient with remote history of gastric bypass with recurrent peptic ulcer. In 06/2017, patient was scoped by Dr. Schumacher showing ulcers that was bleeding ulcer at the anastomosis of the gastric bypass that was clipped. Patient presented to the emergency room with marked amount of melanotic stool that happened earlier in the afternoon of admission. Patient also reported lightheadedness, also reported epigastric pain over the past couple of days, unrelated to food. Patient had been on Protonix at home, is taking reduced dose omeprazole 20 mg by mouth daily. Denies any chest pain, shortness of breath, nausea, vomiting, vertigo. HOSPITAL COURSE: Patient was transfused 1 unit packed red blood cells (PRBCs). General surgery, Dr. Jerome, has been consulted. Patient's hemoglobin and hematocrit (H and H) was monitored. Patient's symptoms improved, returned to baseline. Diet was advanced as per general surgery, and given patient's H and H has stabilized, Dr. Jerome from general surgery believed that bleeding has most likely stopped and would like the patient to followup with Dr. Schumacher or bariatric surgery as outpatient for possible endoscopy. Patient currently is comfortable, in no acute distress, ready to be discharged for further care as outpatient. VITAL SIGNS: Temperature 99.6, pulse 58, respirations 18, blood pressure 109/54, pulse oximetry 99% on room air. LABORATORY: WBC 6.5, hemoglobin and hematocrit 9/27.9, platelets 252. Chemistry: Sodium 144, potassium 2.6, chloride 109, bicarbonate 28, BUN 6, creatinine 0.6. GENERAL: Patient alert, comfortable, in no acute distress. HEENT: Normocephalic, atraumatic. PULMONARY: Bilateral clear. CARDIAC: Regular S1, S2. ABDOMEN: Soft, nontender. Positive bowel sounds. No rebound. No guarding. EXTREMITIES: No clubbing, cyanosis, or edema. DISCHARGE MEDICATIONS: - Carafate 1 gram by mouth with meal three times a day - acetaminophen 1000 mg by mouth every 4 hours as needed - vitamin B complex by mouth daily - calcium/vitamin D by mouth daily - vitamin D 5000 units by mouth daily - multivitamin one tablet by mouth daily - Protonix 40 mg by mouth twice a day - vitamin A 8000 units by mouth daily - vitamin E 400 units by mouth daily DISCHARGE INSTRUCTIONS: Please see primary care provider in [address] Schumacher or bariatric surgery in 7-14 days for possible endoscopy. Return if symptoms worsen.
== END 2018-03-08 10:15 | disposition home or self-care (01) | DRG 241 ==
LOC: M ED 16:08 → M ED INP 19:47 → M MS4PR 21:20 → M PED 03-05 18:20 → OBSVTOIN 03-06 18:04
PROVIDERS: ADMIT Internal Medicine; ATTEND Hospitalist
PROC: 30233N1 Transfusion of Nonautologous Red Blood Cells into Peripheral Vein, Percutaneous Approach (ICD-10-PCS; principal; 2018-03-05)
DX: K28.4 Chronic or unspecified gastrojejunal ulcer with hemorrhage (principal); Z88.7 Allergy status to serum and vaccine; Z79.899 Other long term (current) drug therapy; D62 Acute posthemorrhagic anemia

== ENCOUNTER → 2018-11-20 | Outpatient (CLI) | payer BC, OTHER ==
[~2018-11-20] MED LIST changes: +OMEP1CAP73 PO; +TYLE500T78 PO
--- NOTE | 2018-11-20 20:06 | REP ---
Left lower extremity deep vein duplex ultrasound: The patient is status post radiofrequency ablation of the left greater saphenous vein. The deep veins demonstrate normal compression, normal Doppler color flow and normal Doppler waveforms with respiration augmentation from the popliteal vein to the common femoral vein. There is no deep vein thrombus. However, there is occluding thrombus throughout the left greater saphenous vein. Impression: There is no thrombus in the deep venous system of the left lower extremity. There is occluding thrombus throughout the left lower extremity greater saphenous vein. Electronically Signed by Leighton Hobson MD 11/20/2018 07:58 P
== END ==
LOC: M RAD 09:20
PROVIDERS: ATTEND Surgery Vascular Surgery
DX: I83.812 Varicose veins of left lower extremity with pain (principal)

== ENCOUNTER → 2019-03-15 | Outpatient (CLI) | payer BC, OTHER ==
--- NOTE | 2019-03-16 02:02 | REP ---
Clinical: Trauma. Technique: Frontal view of the chest with multiple views of the left hemithorax. Findings: Frontal view of the chest demonstrates no acute cardiopulmonary process. Multiple views of the left hemithorax demonstrates no obvious acute rib fracture or pathology. Impression: No obvious rib fracture. The Electronically Signed by Miguel Andrea MD 03/16/2019 01:54 A
== END ==
LOC: M WUC 15:30
PROVIDERS: ATTEND Nurse Practitioner Family
DX: S23.41XA Sprain of ribs, initial encounter (principal); X58.XXXA Exposure to other specified factors, initial encounter; Y92.89 Other specified places as the place of occurrence of the external cause; Y93.9 Activity, unspecified; Y99.9 Unspecified external cause status

== ENCOUNTER → 2021-03-23 | Outpatient (CLI) | payer MEDICARE, OTHER ==
[~2021-03-23] MED LIST changes: -ASPI81TA85 PO; +ASPI81TA86 PO; +PANT40TA29 PO; -PANT40TA3 PO
== END ==
LOC: M WHC 09:19
PROVIDERS: ATTEND Internal Medicine
DX: Z12.31 Encounter for screening mammogram for malignant neoplasm of breast (principal)

== ENCOUNTER → 2021-06-19 | Outpatient (CLI) | payer MEDICARE, OTHER | LOC: M WUC 11:28 | PROVIDERS: ATTEND Physician Assistant | DX: S40.022A Contusion of left upper arm, initial encounter (principal); S50.12XA Contusion of left forearm, initial encounter; S50.02XA Contusion of left elbow, initial encounter ==

== ENCOUNTER → 2022-01-04 | Outpatient (REF) | payer MEDICARE, OTHER | LOC: M WUC 11:52 | PROVIDERS: ATTEND Physician Assistant | DX: J02.9 Acute pharyngitis, unspecified (principal) ==

== ENCOUNTER → 2022-07-30 | Outpatient (CLI) | payer MEDICARE, BC, OTHER ==
[~2022-07-30] MED LIST changes: +PERC5TAB12 PO
== END ==
LOC: M WHC 12:24
PROVIDERS: ATTEND Internal Medicine
DX: Z12.31 Encounter for screening mammogram for malignant neoplasm of breast (principal); Z80.49 Family history of malignant neoplasm of other genital organs

== ENCOUNTER 2022-07-31 20:51 | Emergency (ER) | payer MEDICARE, BC, OTHER ==
[~2022-07-31] VITALS: Ht 162.6 cm; Wt 73.2 kg
[~2022-07-31 20:51] MED LIST changes: -PERC5TAB12 PO
[2022-07-31 20:53] VITALS: BP 155/70
[2022-07-31] MEDS ORDERED: MORPHINE 10 MG/ML 1ML VIAL IM ONE (22:05)
[2022-07-31] MEDS ORDERED: PERC5TAB12 PO (22:40)
[2022-07-31] MEDS ORDERED: OXYCODONE/APAP 5MG/325MG(HOME DOSE PACK) PO ONE (22:45)
[2022-07-31] MEDS ORDERED: BOOSTRIX VACCINE (TETANUS/DIPHTH/ACEL. PERTUSSIS) 0.5ML SYR IM ONE (23:25)
== END 2022-07-31 23:51 | disposition home or self-care (01) ==
LOC: M ED 20:51
DX: S52.531A Colles' fracture of right radius, initial encounter for closed fracture (principal); K21.9 Gastro-esophageal reflux disease without esophagitis; Z88.7 Allergy status to serum and vaccine; Z79.810 Long term (current) use of selective estrogen receptor modulators (SERMs); Z79.899 Other long term (current) drug therapy; Y92.009 Unspecified place in unspecified non-institutional (private) residence as the place of occurrence of the external cause